=== PATIENT | female | born 1990 | race Caucasian/White ===

== ENCOUNTER → 2018-11-16 | Outpatient (CLI) | payer BC, OTHER | LOC: HYPER 07:02 | DX: L88 Pyoderma gangrenosum (principal); K50.90 Crohn's disease, unspecified, without complications; K50.80 Crohn's disease of both small and large intestine without complications; K21.9 Gastro-esophageal reflux disease without esophagitis; R10.84 Generalized abdominal pain; Z93.3 Colostomy status ==

== ENCOUNTER → 2018-11-23 | Outpatient (CLI) | payer BC, OTHER | LOC: HYPER 06:54 | DX: L88 Pyoderma gangrenosum (principal); K50.90 Crohn's disease, unspecified, without complications; K50.80 Crohn's disease of both small and large intestine without complications; K21.9 Gastro-esophageal reflux disease without esophagitis; R10.84 Generalized abdominal pain; Z93.3 Colostomy status ==

== ENCOUNTER → 2018-11-30 | Outpatient (CLI) | payer BC, OTHER | LOC: HYPER 06:56 | DX: L88 Pyoderma gangrenosum (principal); R10.84 Generalized abdominal pain; K50.80 Crohn's disease of both small and large intestine without complications; K21.9 Gastro-esophageal reflux disease without esophagitis; Z93.3 Colostomy status ==

== ENCOUNTER → 2018-12-07 | Outpatient (CLI) | payer BC, OTHER | LOC: HYPER 06:39 | DX: L88 Pyoderma gangrenosum (principal); S31.102S Unspecified open wound of abdominal wall, epigastric region without penetration into peritoneal cavity, sequela; R10.84 Generalized abdominal pain; K50.80 Crohn's disease of both small and large intestine without complications; K21.9 Gastro-esophageal reflux disease without esophagitis; Z93.3 Colostomy status; X58.XXXS Exposure to other specified factors, sequela ==

== ENCOUNTER → 2018-12-15 | Outpatient (CLI) | payer BC, OTHER | LOC: HYPER 07:35 | DX: L88 Pyoderma gangrenosum (principal); S31.102S Unspecified open wound of abdominal wall, epigastric region without penetration into peritoneal cavity, sequela; K50.90 Crohn's disease, unspecified, without complications; K50.80 Crohn's disease of both small and large intestine without complications; K21.9 Gastro-esophageal reflux disease without esophagitis; D53.9 Nutritional anemia, unspecified; R10.84 Generalized abdominal pain; Z93.3 Colostomy status; X58.XXXS Exposure to other specified factors, sequela ==

== ENCOUNTER → 2018-12-21 | Outpatient (CLI) | payer BC, OTHER | LOC: HYPER 06:52 | DX: L88 Pyoderma gangrenosum (principal); S31.102S Unspecified open wound of abdominal wall, epigastric region without penetration into peritoneal cavity, sequela; R10.84 Generalized abdominal pain; K50.80 Crohn's disease of both small and large intestine without complications; K21.9 Gastro-esophageal reflux disease without esophagitis; Z93.3 Colostomy status; X58.XXXS Exposure to other specified factors, sequela ==

== ENCOUNTER → 2018-12-26 | Outpatient (CLI) | payer BC, OTHER | LOC: HYPER 07:12 | DX: L88 Pyoderma gangrenosum (principal); S31.102S Unspecified open wound of abdominal wall, epigastric region without penetration into peritoneal cavity, sequela; R10.84 Generalized abdominal pain; K50.80 Crohn's disease of both small and large intestine without complications; K21.9 Gastro-esophageal reflux disease without esophagitis; D64.89 Other specified anemias; Z93.3 Colostomy status; X58.XXXS Exposure to other specified factors, sequela ==

== ENCOUNTER → 2019-01-11 | Outpatient (CLI) | payer BC, OTHER | LOC: HYPER 06:59 | DX: L88 Pyoderma gangrenosum (principal); S31.102S Unspecified open wound of abdominal wall, epigastric region without penetration into peritoneal cavity, sequela; K50.80 Crohn's disease of both small and large intestine without complications; K21.9 Gastro-esophageal reflux disease without esophagitis; R10.84 Generalized abdominal pain; Z93.3 Colostomy status; X58.XXXS Exposure to other specified factors, sequela ==

== ENCOUNTER → 2019-01-31 | Outpatient (CLI) | payer BC, OTHER | LOC: HYPER 07:29 | DX: L88 Pyoderma gangrenosum (principal); S31.102D Unspecified open wound of abdominal wall, epigastric region without penetration into peritoneal cavity, subsequent encounter; K50.80 Crohn's disease of both small and large intestine without complications; K21.9 Gastro-esophageal reflux disease without esophagitis; D64.9 Anemia, unspecified; K50.90 Crohn's disease, unspecified, without complications; R10.84 Generalized abdominal pain; Z93.3 Colostomy status; X58.XXXD Exposure to other specified factors, subsequent encounter ==